=== PATIENT | female | born 1970 | race Caucasian/White ===

== ENCOUNTER 2017-05-17 18:05 | Emergency (ER) | payer MEDICARE, MEDICAID ==
[2017-05-17 18:25] VITALS: BP 150/88
--- NOTE | 2017-05-17 20:21 | ER Document Report ---
ED ENT - General Chief Complaint: Nose Bleed Stated Complaint: FALL/FACIAL INJURY Time Seen by Provider: 05/17/17 19:15 Mode of Arrival: Ambulatory Information source: Patient, Friend Notes: Patient is a 46-year-old white female comes emergency room with a complaint of epistaxis. Patient states that she was standing in the kitchen cleaning potatoes and she wiped her nose with her forearm and when she did this her nose started bleeding. Patient denies any traumatic or forceful trauma. She states the nose was actually trickling blood before she went to wipe it this is what gave her the sensation to wipe. She states that she has been at home and has gone through at least 2 huge towels and one roll of toilet tissue without stopping the bleeding. She contacted her friend and they started on the way to the hospital and were still unable to control the bleeding EMS met them at a gas station and gave patient 2 shots of Afrin in each side of the nose and since the nose to stop bleeding. Again patient denies any traumatic injury or fall. She also complains of being somewhat lightheaded and dizzy with little numbness around her lips. She does state that she has been bleeding out of both sides however the right was the worst. TRAVEL OUTSIDE OF THE [place] IN LAST 30 DAYS: No - HPI Patient complains to provider of: Nose problem Onset: Just prior to arrival Onset/Duration: Sudden Quality of pain: Other - Numbness tingling Severity: Moderate Pain Level: 1 Location of pain: Nose Associated symptoms: Other - Dry nasal mucosa Similar symptoms previously: No Recently seen / treated by doctor: Yes - Related Data Allergies/Adverse Reactions: Penicillins Allergy (Severe, Verified 05/17/17 18:21) Hives Sulfa (Sulfonamide Antibiotics) Allergy (Severe, Verified 05/17/17 18:21) headaches acetaminophen [From Vicodin] Allergy (Verified 05/17/17 18:21) cefazolin sodium [From Ancef] Allergy (Verified 05/17/17 18:21) Hives cephalexin [Cephalexin] Allergy (Verified 05/17/17 18:21) tongue swells hydrocodone bitartrate [From Vicodin] Allergy (Verified 05/17/17 18:21) Severe Headaches Past Medical History - General Information source: Patient - Social History Smoking Status: Never Smoker Chew tobacco use (# tins/day): No Frequency of alcohol use: None Drug Abuse: None Lives with: Family Family History: None, Reviewed & Not Pertinent Patient has suicidal ideation: No Patient has homicidal ideation: No - Past Medical History Cardiac Medical History: Reports: Hx Hypertension Denies: Hx Coronary Artery Disease, Hx Heart Attack Pulmonary Medical History: Denies: Hx Asthma, Hx Bronchitis, Hx COPD, Hx Pneumonia Neurological Medical History: Reports: Hx Migraine. Denies: Hx Cerebrovascular Accident, Hx Seizures Renal/ Medical History: Denies: Hx Peritoneal Dialysis Musculoskeltal Medical History: Denies Hx Arthritis Psychiatric Medical History: Reports: Hx Attention Deficit Hyperactivity Disorder Past Surgical History: Reports: Hx Gynecologic Surgery - BTL, Hx Tubal LigationComment Only: Hx Mastectomy - R lumpectomy - Immunizations Hx Diphtheria, Pertussis, Tetanus Vaccination: Yes - 2006 Review of Systems - Review of Systems Constitutional: No symptoms reported EENT: Nose pain, Nose discharge Cardiovascular: No symptoms reported Respiratory: No symptoms reported Gastrointestinal: No symptoms reported Genitourinary: No symptoms reported Female Genitourinary: No symptoms reported Musculoskeletal: No symptoms reported Skin: No symptoms reported Hematologic/Lymphatic: No symptoms reported Neurological/Psychological: No symptoms reported -: Yes All other systems reviewed and negative Physical Exam - Vital signs Vitals: Temp Pulse Resp BP Pulse Ox 97.7 F 91 20 150/88 H 100 05/17/17 18:21 05/17/17 18:21 05/17/17 18:21 05/17/17 18:21 05/17/17 18:21 - Notes Notes: Patient sitting quietly and in no distress at the time of physical exam. - General General appearance: Appears well - HEENT Head: Normocephalic, Atraumatic Eyes: Normal Nasal: Epistaxis, Other - Physical examination patient's naris show that she has moderate amount of dryness to the mucosa in bilateral nares. Further investigation shows that there appears to be a area in the right posterior nare that appears to be a ruptured vessel. It is since clotted and no bleeding seen currently. Left side of nose also shows to be dry but no traumatic events found there. Mouth/Lips: Normal Mucous membranes: Dry Pharynx: Normal Neck: Normal - Respiratory Respiratory status: No respiratory distress Breath sounds: Normal Chest palpation: Normal - Cardiovascular Rhythm: Regular Heart sounds: Normal auscultation Murmur: No - Abdominal Inspection: Normal - Neurological Cognition: Normal Orientation: AAOx4 [place] Coma Scale Eye Opening: Spontaneous [place] Coma Scale Verbal: Oriented [place] Coma Scale Motor: Obeys Commands [place] Coma Scale Total: 15 Speech: Normal Course - Re-evaluation Re-evalutation: 05/17/17 21:34 Reexamination evaluation the patient shows that during her time here in the emergency room she has not had any further nosebleeds. She has been actively talking and joking around with her friend in the room as well as with myself. - Vital Signs Vital signs: Temp Pulse Resp BP Pulse Ox 97.7 F 91 20 150/88 H 100 05/17/17 18:21 05/17/17 18:21 05/17/17 18:21 05/17/17 18:21 05/17/17 18:21 - Laboratory Result Diagrams: 05/17/17 20:43 05/17/17 19:58 Laboratory results interpreted by me: 05/17/17 05/17/17 19:58 20:43 RDW 14.7 H Plt Count 526 H Direct Bilirubin 0.5 H AST 37 H Discharge - Discharge Clinical Impression: Epistaxis not due to trauma, Arterial epistaxis Condition: Stable Disposition: HOME, SELF-CARE Instructions: Nosebleed Instructions ([facility]) Additional Instructions: Home and rest. As we discussed you do not want to do anything that will increase the bleeding in the nose area by any pressure to the site. As we also discussed it appears that on the right side you have a vessel that ruptured spontaneously and causing the nosebleed. It also appears that this may be due to dry mucosa of the nose. He may use nasal saline to keep it moist or you may use some [id number] Aquaphor and apply 1-2 times a day. Also as we discussed if you have mild bleeding return he may use the Afrin given to by EMS again he can spray 2 sprays on that side and apply pressure or he may soak a cotton ball squeeze it out and up use that inside the nose with pressure. May also use ice packs in the area. Should you have continuous bleeding or bleeding you cannot stop return to ER for packing. Also if you have any concerns at all return to ER for recheck. Referrals: JAMES GONZALES MD [Primary Care Provider] - Follow up as needed
[2017-05-17 20:41] LABS: ALANINE AMINOTRANSFERASE 48 U/L (9-52); ALBUMIN 4.7 g/dL (3.5-5.0); ALKALINE PHOSPHATASE 118 U/L (38-126); ANION GAP 13 (5-19); ASPARTATE AMINO TRANSFERASE 37 U/L (14-36); BILIRUBIN,DIRECT 0.5 mg/dL (0.0-0.4); BILIRUBIN,TOTAL 0.7 mg/dL (0.2-1.3); BLOOD UREA NITROGEN 12 mg/dL (7-20); CALCIUM 9.8 mg/dL (8.4-10.2); CARBON DIOXIDE 29 mmol/L (22-30); CHLORIDE 101 mmol/L (98-107); CREATININE RESULT 0.81 mg/dL (0.52-1.25); GLUCOSE 79 mg/dL (75-110); POTASSIUM 3.7 mmol/L (3.6-5.0); SODIUM 142.5 mmol/L (137-145); TOTAL PROTEIN 7.7 g/dL (6.3-8.2)
[2017-05-17 20:45] LABS: PROTHROMBIN TIME 12.2 SEC (11.4-15.4)
[2017-05-17 21:03] LABS: ABSOLUTE BASOPHILS # (AUTO) 0.1 10^3/uL (0.0-0.2); ABSOLUTE EOSINOPHILS # (AUTO) 0.2 10^3/uL (0.0-0.6); ABSOLUTE LYMPHOCYTES (AUTO) 2.1 10^3/uL (0.5-4.7); ABSOLUTE MONOCYTES (AUTO) 0.6 10^3/uL (0.1-1.4); BASOPHILS % (AUTO) 0.6 % (0-2); EOSINOPHILS % (AUTO) 1.9 % (0-6); HEMATOCRIT 37.9 % (36.0-47.0); HEMOGLOBIN 12.9 g/dL (12.0-15.5); HGB HCT DIFFERENCE 0.8; LYMPHOCYTES % (AUTO) 23.4 % (13-45); MEAN CORPUSCULAR HEMOGLOBIN 29.6 pg (27.0-33.4); MEAN CORPUSCULAR VOLUME 87 fl (80-97); MONOCYTES % (AUTO) 6.6 % (3-13); RED BLOOD COUNT 4.35 10^6/uL (3.72-5.28); RED CELL DISTRIBUTION WIDTH 14.7 % (11.5-14.0); SEGMENTED NEUTROPHILS % (AUTO) 67.5 % (42-78); WHITE BLOOD COUNT 8.9 10^3/uL (4.0-10.5)
== END 2017-05-17 21:52 | disposition home or self-care (01) ==
LOC: ER 18:05
DX: R04.0 Epistaxis (principal); R20.0 Anesthesia of skin; J34.89 Other specified disorders of nose and nasal sinuses; R42 Dizziness and giddiness; I10 Essential (primary) hypertension; Z88.0 Allergy status to penicillin; Z88.2 Allergy status to sulfonamides; Z88.1 Allergy status to other antibiotic agents; Z88.6 Allergy status to analgesic agent; Z88.5 Allergy status to narcotic agent
CPT/HCPCS: 36415; 80053; 85025; 85610; 85730; 99283